=== PATIENT | male | born 1980 | race Caucasian/White ===

== ENCOUNTER 2020-11-02 21:04 | Emergency (ER) | payer OTHER ==
[2020-11-02 21:18] VITALS: TEMP 97.7
[2020-11-02] MEDS ORDERED: MORPHINE SULFATE 4 MG/ML SYRINGE IM STA (21:39)
[2020-11-02] MEDS ORDERED: ACET/COD 300 MG/30 MG STARTER PACK 6 TAB BTL PO STA (22:04)
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
[2020-11-02 23:13] VITALS: BP 157/117; PULSE 94; RESP 16
== END 2020-11-02 23:13 | disposition home or self-care (01) ==
LOC: EC 21:04
DX: T25.221A Burn of second degree of right foot, initial encounter (principal); F17.200 Nicotine dependence, unspecified, uncomplicated; X18.XXXA Contact with other hot metals, initial encounter
CPT/HCPCS: 99283; 96372; J2270

== ENCOUNTER → 2020-11-08 | Outpatient (CLI) | payer OTHER ==
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
--- NOTE | 2020-11-08 15:41 | XR ---
EXAMINATION TYPE: XR tibia fibula RT DATE OF EXAM: 11/08/2020 COMPARISON: NONE HISTORY: Pain TECHNIQUE: Two views are submitted. FINDINGS: The osseous structures are intact. The joint spaces are preserved. Calcaneal spur noted. IMPRESSION: 1. No acute osseous abnormality.
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
== END | disposition home or self-care (01) ==
LOC: RADXRMAIN 11:38
PROVIDERS: ATTEND Emergency Medicine
DX: M25.471 Effusion, right ankle (principal); M79.662 Pain in left lower leg; S99.921A Unspecified injury of right foot, initial encounter

== ENCOUNTER 2020-11-20 13:34 | Emergency (ER) | payer OTHER ==
[2020-11-20 13:39] VITALS: BP 170/109; PULSE 73; RESP 20; TEMP 97.5
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
== END 2020-11-20 14:38 | disposition home or self-care (01) ==
LOC: EC 13:34
DX: L76.21 Postprocedural hemorrhage of skin and subcutaneous tissue following a dermatologic procedure (principal); F17.200 Nicotine dependence, unspecified, uncomplicated; Y83.8 Other surgical procedures as the cause of abnormal reaction of the patient, or of later complication, without mention of misadventure at the time of the procedure
CPT/HCPCS: 99282

== ENCOUNTER → 2023-06-11 | Outpatient (CLI) | payer OTHER ==
--- NOTE | 2023-06-11 12:30 | XR ---
EXAMINATION TYPE: XR tibia fibula RT DATE OF EXAM: 06/11/2023 COMPARISON: NONE HISTORY: Pain TECHNIQUE: Two views are submitted. FINDINGS: The osseous structures are intact. The joint spaces are preserved. Calcaneal spur noted. IMPRESSION: 1. No acute osseous abnormality.
--- NOTE | 2023-06-11 12:31 | XR ---
EXAMINATION TYPE: XR ankle complete RT DATE OF EXAM: 06/11/2023 COMPARISON: NONE HISTORY: Pain FINDINGS: Three views of the ankle demonstrate the ankle mortise to be intact and symmetric. The joint spaces are preserved. The osseous structures are intact. Tiny bony density adjacent to the talus and media l malleolus may be related to remote trauma. There is a enthesophyte or a calcaneal spur. IMPRESSION: 1. No definite acute fracture or dislocation, if symptoms persist follow-up study in 7 to 10 days wou ld be suggested.
--- NOTE | 2023-06-11 12:39 | XR ---
EXAMINATION TYPE: XR foot complete 3 views RT DATE OF EXAM: 06/11/2023 COMPARISON: NONE HISTORY: 42-year-old male [id number] CONTUSION OF RIGHT LOWER LEG, INITIAL ENCOUNTER TECHNIQUE: 3 views FINDINGS: Mild degenerative spurring tibiotalar joint on the lateral view. Small delineation to the Achilles te ndon. Subtalar joint is aligned. No acute fracture, subluxation, dislocation is seen. IMPRESSION: Mild degenerative spurring at the tibiotalar joint. No acute osseous abnormality seen.
== END | disposition home or self-care (01) ==
LOC: RADXRMAIN 11:39
PROVIDERS: ATTEND Emergency Medicine
DX: S80.11XA Contusion of right lower leg, initial encounter (principal); S93.401A Sprain of unspecified ligament of right ankle, initial encounter; S93.601A Unspecified sprain of right foot, initial encounter; M19.071 Primary osteoarthritis, right ankle and foot; X58.XXXA Exposure to other specified factors, initial encounter

== ENCOUNTER → 2023-06-18 | Outpatient (CLI) | payer OTHER ==
--- NOTE | 2023-06-18 12:36 | XR ---
EXAMINATION TYPE: XR tibia fibula RT DATE OF EXAM: 06/18/2023 COMPARISON: NONE HISTORY: Pain TECHNIQUE: Two views are submitted. FINDINGS: The osseous structures are intact. The joint spaces are preserved. IMPRESSION: 1. No acute osseous abnormality.
== END | disposition home or self-care (01) ==
LOC: RADXRMAIN 11:18
PROVIDERS: ATTEND Emergency Medicine
DX: S80.11XD Contusion of right lower leg, subsequent encounter (principal); X58.XXXD Exposure to other specified factors, subsequent encounter

== ENCOUNTER 2024-10-18 20:45 | Emergency (ER) | payer OTHER ==
[2024-10-18 20:50] VITALS: RESP 18
[2024-10-18] MEDS: SODIUM CHLORIDE 0.9% 1,000 ML IV STA (21:36)
[2024-10-18] MEDS: ONDANSETRON 4 MG/2 ML VIAL IVP STA (21:39)
[2024-10-18] MEDS: FAMOTIDINE 20 MG/2 ML VIAL IV STA (21:45)
[2024-10-18 21:47] LABS: Basophils # (A) 0.07 10*3/uL (0.00-0.10); Basophils % (A) 0.5 %; Eosinophils # (A) 0.12 10*3/uL (0.04-0.35); Eosinophils % (A) 0.9 %; HCT 44.7 % (39.6-50.0); HGB 15.7 g/dL (13.0-17.0); Lymphocytes # (A) 2.13 10*3/uL (0.90-5.00); Lymphocytes % (A) 15.9 %; MCH 32.4 pg (27.0-32.0); MCHC 35.1 g/dL (32.0-37.0); MCV 92.2 fL (80.0-97.0); Mean Platelet Volume 10.2 fL (9.5-12.2); Monocytes # (A) 0.76 10*3/uL (0.20-1.00); Monocytes % (A) 5.7 %; Neutrophils # (A) 10.29 10*3/uL (1.80-7.70); Neutrophils % (A) 76.7 %; Platelet Count 259 10*3/uL (140-440); RBC 4.85 10*6/uL (4.40-5.60); RDW 12.5 % (11.5-14.5); WBC 13.41 10*3/uL (4.50-10.00)
--- NOTE | 2024-10-18 21:48 | ED ---
Abdominal Pain HPI - General Chief Complaint: Abdominal Pain Stated Complaint: Abd pain Time Seen by Provider: 10/18/24 21:01 Source: patient, RN notes reviewed Mode of arrival: ambulatory Limitations: no limitations - History of Present Illness Initial Comments: This is a 43-year-old male presenting with abdominal pain (/10) since yesterday. Patient describes pain as intermittent and sharp/cramping with associated nausea. Endorses use of pantoprazole for the past 4 years. Denies life stressors, acidic/spicy food intake. Denies [id number] medication use. Denies fever, chills, chest pain, dyspnea, dizziness, vomiting, diarrhea, constipation, urinary symptoms. MD Complaint: abdominal pain Onset/Timin -: days(s) Location: epigastric Radiation: none Migration to: no migration Severity scale (1-10): 8 Quality: cramping, sharp Consistency: intermittent Improves With: nothing Worsens With: nothing Associated Symptoms: nausea - Related Data Previous Rx's Medication Instructions Recorded Famotidine 40 mg PO Q12H #20 tablet 10/18/24 Ondansetron [Zofran] 4 mg PO Q8HR PRN #10 tab 10/19/24 Allergies Allergy/AdvReac Type Severity Reaction Status Date / Time No Known Allergies Allergy Verified 10/18/24 20:50 Review of Systems ROS Statement: Those systems with pertinent positive or pertinent negative responses have been documented in the HPI. ROS Other: All systems not noted in ROS Statement are negative. Past Medical History Past Medical History: No Reported History History of Any Multi-Drug Resistant Organisms: None Reported Past Surgical History: No Surgical Hx Reported Additional Past Surgical History / Comment(s): skin graft Past Psychological History: Anxiety, Depression Smoking Status: Current every day smoker Past Alcohol Use History: Daily Past Drug Use History: None Reported General Exam Limitations: no limitations General appearance: alert, in no apparent distress Head exam: Present: atraumatic, normocephalic, normal inspection Eye exam: Present: normal appearance, PERRL, EOMI. Absent: scleral icterus, conjunctival injection, periorbital swelling ENT exam: Present: normal exam, mucous membranes moist Neck exam: Present: normal inspection. Absent: tenderness, meningismus, lymphadenopathy Respiratory exam: Present: normal lung sounds bilaterally. Absent: respiratory distress, wheezes, rales, rhonchi, stridor, accessory muscle use Cardiovascular Exam: Present: regular rate, normal rhythm, normal heart sounds. Absent: systolic murmur, diastolic murmur, rubs, gallop, clicks GI/Abdominal exam: Present: soft, diminished bowel sounds, hypoactive bowel sounds. Absent: distended, tenderness (Negative abdominal tenderness), guarding, rebound, rigid Extremities exam: Present: normal inspection, full ROM, normal capillary refill. Absent: tenderness, pedal edema, joint swelling, calf tenderness Back exam: Present: normal inspection Neurological exam: Present: alert, oriented X3, CN II-XII intact Psychiatric exam: Present: normal affect, normal mood Skin exam: Present: warm, dry, intact, normal color. Absent: rash Course Vital Signs 10/18/24 10/18/24 10/18/24 20:47 21:18 22:00 Temperature 98.1 F 98.5 F Pulse Rate 84 82 Respiratory 18 18 Rate Blood Pressure 134/96 132/95 128/85 O2 Sat by Pulse 98 96 99 Oximetry 10/19/24 00:05 Temperature 98.2 F Pulse Rate 72 Respiratory 18 Rate Blood Pressure 134/87 O2 Sat by Pulse 97 Oximetry Medical Decision Making - Medical Decision Making Was pt. sent in by a medical professional or institution (, [facility], MEDICINE TECH, urgent care, hospital, or penitentiary...) When possible be specific @ -No Did you speak to anyone other than the patient for history (EMS, parent, family, police, friend...)? What history was obtained from this source @ -No Did you review nursing and triage notes (agree or disagree)? Why? @ -I reviewed and agree with nursing and triage notes Were old charts reviewed (outside hosp., previous admission, EMS record, old EKG, old radiological studies, urgent care reports/EKG's, penitentiary records)? Report findings @ -No old charts were reviewed Differential Diagnosis (chest pain, altered mental status, abdominal pain women, abdominal pain men, vaginal bleeding, weakness, fever, dyspnea, syncope, headache, dizziness, GI bleed, back pain, seizure, CVA, palpatations, mental health, musculoskeletal)? @ -Differential Abdominal Pain Men: Appendicitis, cholecystitis, diverticulosis, ischemic bowel, pancreatitis, hepatitis, UTI, gastroenteritis, AAA, incarcerated hernia, bowel obstruction, constipation, inflammatory bowel, hepatitis, peptic ulcer disease, splenic infarction, perforated viscus, testicular torsion, this is not meant to be an all-inclusive list EKG interpreted by me (3pts min.). @ -Not done X-rays interpreted by me (1pt min.). @ -None done CT interpreted by me (1pt min.). @ -None done U/S interpreted by me (1pt. min.). @ -None done What testing was considered but not performed or refused? (CT, X-rays, U/S, labs)? Why? @ -None What meds were considered but not given or refused? Why? @ -None Did you discuss the management of the patient with other professionals (professionals i.e. DrLilian, PA, MEDICINE TECH, lab, RT, psych nurse, director of social work, notary public, teacher, disbursing officer, skilled nursing case manager)? Give summary @ -No Was smoking cessation discussed for >3mins.? @ -No Was critical care preformed (if so, how long)? @ -No Were there social determinants of health that impacted care today? How? (Homelessness, low income, unemployed, alcoholism, drug addiction, transportation, low edu. Level, literacy, decrease access to med. care, senior care, rehab)? @ -No Was there de-escalation of care discussed even if they declined (Discuss DNR or withdrawal of care, Hospice)? DNR status @ -No What co-morbidities impacted this encounter? (DM, HTN, Smoking, COPD, CAD, Cancer, CVA, ARF, Chemo, Hep., AIDS, mental health diagnosis, sleep apnea, morbid obesity)? @ -None Was patient admitted / discharged? Hospital course, mention meds given and route, prescriptions, significant lab abnormalities, going to OR and other pertinent info. @ -Labwork shows leukocytosis 13.41 and hyperglycemia 111 with negative lactic acid. Patient initially provided IV normal saline, Pepcid, Protonix and Zofran. Patient notes significant relief of abdominal pain and nausea. Also notes relief following p.o. GI cocktail. Advised patient to follow-up with PCP/[facility] for ongoing management of any epigastric pain. Famotidine and Zofran sent to patient's pharmacy patient discharged with Zofran starter pack. Advised brat diet and avoid spicy/acidic/fatty foods moving forward. Discussed patient with Dr. Wells. Undiagnosed new problem with uncertain prognosis? @ -No Drug Therapy requiring intensive monitoring for toxicity (Heparin, Nitro, Insulin, Cardizem)? @ -No Were any procedures done? @ -No Diagnosis/symptom? @ -Gastritis Acute, or Chronic, or Acute on Chronic? @ -Acute Uncomplicated (without systemic symptoms) or Complicated (systemic symptoms)? @ -Uncomplicated Side effects of treatment? @ -No Exacerbation, Progression, or Severe Exacerbation? @ -No Poses a threat to life or bodily function? How? (Chest pain, USA, DE, pneumonia, PE, COPD, DKA, ARF, appy, cholecystitis, CVA, Diverticulitis, Homicidal, Suicidal, threat to staff... and all critical care pts) @ -No - Lab Data Result diagrams: 10/18/24 21:31 10/18/24 21:31 Lab Results 10/18/24 10/18/24 10/18/24 Range/Units 21:31 21:31 21:31 WBC 13.41 H (4.50-10.00) 10*3/uL RBC 4.85 (4.40-5.60) 10*6/uL Hgb 15.7 (13.0-17.0) g/dL Hct 44.7 (39.6-50.0) % MCV 92.2 (80.0-97.0) fL MCH 32.4 H (27.0-32.0) pg MCHC 35.1 (32.0-37.0) g/dL Plt Count 259 (140-440) 10*3/uL MPV 10.2 (9.5-12.2) fL Immature Gran % (Auto) 0.3 % Neutrophils % 76.7 % Lymphocytes % 15.9 % Monocytes % 5.7 % Eosinophils % 0.9 % Basophils % 0.5 % Immature Gran # 0.04 (0.00-0.04) 10*3/uL Neutrophils # 10.29 H (1.80-7.70) 10*3/uL Lymphocytes # 2.13 (0.90-5.00) 10*3/uL Monocytes # 0.76 (0.20-1.00) 10*3/uL Eosinophils # 0.12 (0.04-0.35) 10*3/uL Basophils # 0.07 (0.00-0.10) 10*3/uL Sodium 136 L (137-145) mmol/L Potassium 4.1 (3.5-5.1) mmol/L Chloride 102 (98-107) mmol/L Carbon Dioxide 22 (22-30) mmol/L Anion Gap 12 mmol/L BUN 17 (9-20) mg/dL Creatinine 0.76 (0.66-1.25) mg/dL Est GFR (CKD-EPI)AfAm >90 (>60 ml/min/1.73 sqM) Est GFR (CKD-EPI)NonAf >90 (>60 ml/min/1.73 sqM) Glucose 111 H (74-99) mg/dL Plasma Lactic Acid Adebayo 1.2 (0.7-2.0) mmol/L Calcium 9.7 (8.4-10.2) mg/dL Total Bilirubin 0.8 (0.2-1.3) mg/dL AST 20 (17-59) U/L ALT 16 (4-49) U/L Alkaline Phosphatase 78 (38-126) U/L Total Protein 7.2 (6.3-8.2) g/dL Albumin 4.4 (3.5-5.0) g/dL Disposition Clinical Impression: Gastritis Disposition: HOME SELF-CARE Condition: Good Instructions (If sedation given, give patient instructions): Gastritis (ED) Additional Instructions: Avoiding spicy, acidic, fatty, processed foods. Consume bread, rice, apples auce, tea, toast. Increase oral hydration. Follow-up with PCP/GI for any ongoing or worsening symptoms. Prescriptions: Famotidine 40 mg PO Q12H #20 tablet Ondansetron [Zofran] 4 mg PO Q8HR PRN #10 tab PRN Reason: Nausea Is patient prescribed a controlled substance at d/c from ED?: No Referrals: Jerome Benítez DO [Primary Care Provider] - 1-2 days Elle Aguilar MD [STAFF PHYSICIAN] - 1-2 days Time of Disposition: 23:14
[2024-10-18] MEDS: PANTOPRAZOLE 40 MG/10 ML VIAL IVP STA (21:51)
[2024-10-18 22:04] LABS: ALT 16 U/L (4-49); AST 20 U/L (17-59); African American GFR (CKD) >90 (>60 ml/min/1.73 sqM); Albumin 4.4 g/dL (3.5-5.0); Alkaline Phosphatase 78 U/L (38-126); Anion Gap 12 mmol/L; Blood Urea Nitrogen 17 mg/dL (9-20); Calcium 9.7 mg/dL (8.4-10.2); Carbon Dioxide 22 mmol/L (22-30); Chloride 102 mmol/L (98-107); Glucose 111 mg/dL (74-99); Non-African American GFR(CKD) >90 (>60 ml/min/1.73 sqM); Potassium 4.1 mmol/L (3.5-5.1); Sodium 136 mmol/L (137-145); Total Bilirubin 0.8 mg/dL (0.2-1.3); Total Protein 7.2 g/dL (6.3-8.2)
[2024-10-19 00:06] VITALS: TEMP 98.2
[2024-10-19] MEDS: MAG HYDROX/AL HYDROX/SIMETH 30 ML, LIDOCAINE VISCOUS 2% 30 ML, diphenhydrAMINE ELIXIR 7... PO STA (00:07)
[2024-10-19] MEDS: ONDANSETRON 4 MG ODT STARTER PACK 2 TAB BTL PO STA (01:29)
[2024-10-19 01:37] VITALS: BP 133/84; PULSE 69
== END 2024-10-19 01:38 | disposition home or self-care (01) ==
LOC: EC 20:45
DX: K29.70 Gastritis, unspecified, without bleeding (principal); F17.200 Nicotine dependence, unspecified, uncomplicated
CPT/HCPCS: 36415; 80053; 83605; 85025; 99284; 96374; 96375 ×2; 96361; J2405; J2470; J1308